=== PATIENT | male | born 1985 | race American Indian/Alaskan Native ===

== ENCOUNTER 2016-11-08 21:09 | Emergency (ER) | payer SELFPAY ==
[2016-11-08 22:33] LABS: Bilirubin,Urine NEG (Negative); Blood,Urine NEG (Negative); Ketones,Urine NEG (Negative); Leukocyte Esterase,Urine SM (Negative); Mucus,Urine 2+ /HPF; Nitrite,Urine NEG (Negative); Protein,Urine <15 mg/dL mg/dL (Negative)
[2016-11-08 22:42] LABS: Basophils % (Auto) 0.8 % (0.0-1.8); Eosinophils % (Auto) 5.8 % (0.0-4.3); Hemoglobin 15.1 gm/dl (11.8-15.2); Mean Corpuscular HGB Conc 34 % (32-34); Mean Corpuscular Hemoglobin 31 pg (28-32); Mean Corpuscular Volume 92 fl (84-94); Platelet Count 239 K/mm3 (140-440); Red Cell Distribution Width 13.7 % (13.2-15.2); White Blood Count 6.7 K/mm3 (4.5-11.0)
[2016-11-08 22:48] VITALS: BP 121/93
[2016-11-08 23:04] LABS: Alanine Aminotransferase 13 units/L (7-56); Albumin 3.9 g/dL (3.9-5); Albumin/Globulin Ratio 1.2 %; Alkaline Phosphatase 37 units/L (35-129); Anion Gap 17 mmol/L; BUN/Creatinine Ratio 5.83; Blood Urea Nitrogen 7 mg/dL (9-20); Calcium 8.6 mg/dL (8.4-10.2); Carbon Dioxide 25 mmol/L (22-30); Chloride 101.3 mmol/L (98-107); Glucose 107 mg/dL (75-100); Lipase 12 units/L (13-60); Potassium 3.8 mmol/L (3.6-5.0); Sodium 139 mmol/L (137-145); Total Protein 7.1 g/dL (6.3-8.2)
--- NOTE | 2016-11-09 00:28 | Emergency Department Report ---
ED Male HPI - General Chief complaint: Urogenital-Male Stated complaint: STD/HEADACHE/NAUSEA Source: patient, family Mode of arrival: Ambulatory Limitations: No Limitations - History of Present Illness Initial comments: 31 year old male presents to ED with groin pain and urinary frequency. patient denies penile discharge or dysuria. patient is stable, neurologically intact and in no acute distress. MD Complaint: groin pain, other (urinary frequency) -: Sudden, days(s) (2) Location: penis (groin pain above penis) Radiation: none Severity: mild Quality: sharp Consistency: intermittent Improves with: none Worsens with: urination denies other symptoms. denies: discharge, swelling, mass, rash, urinary retention, blood in urine, dysuria, fever, incontinence - Related Data Allergies Allergy/AdvReac Type Severity Reaction Status Date / Time No Known Allergies Allergy Verified 11/08/16 21:43 ED Review of Systems ROS: Stated complaint: STD/HEADACHE/NAUSEA Other details as noted in HPI Constitutional: denies: chills, fever Eyes: denies: eye pain, eye discharge, vision change ENT: denies: ear pain, throat pain Respiratory: denies: cough, shortness of breath, wheezing Cardiovascular: denies: chest pain, palpitations Endocrine: no symptoms reported Gastrointestinal: nausea. denies: abdominal pain, vomiting, diarrhea Genitourinary: urgency, frequency. denies: dysuria, hematuria, discharge, testicular pain, testicular mass Musculoskeletal: denies: back pain, joint swelling, arthralgia Skin: denies: rash, lesions Neurological: denies: headache, weakness, paresthesias Psychiatric: denies: anxiety, depression Hematological/Lymphatic: denies: easy bleeding, easy bruising ED Past Medical Hx - Past Medical History Previous Medical History?: No - Surgical History Past Surgical History?: No - Social History Smoking Status: Current Every Day Smoker Substance Use Type: Alcohol ED Physical Exam - General Limitations: No Limitations General appearance: alert, in no apparent distress - Head Head exam: Present: atraumatic, normocephalic - Eye Eye exam: Present: normal appearance - ENT ENT exam: Present: mucous membranes moist - Neck Neck exam: Present: normal inspection - Respiratory Respiratory exam: Present: normal lung sounds bilaterally. Absent: respiratory distress - Cardiovascular Cardiovascular Exam: Present: regular rate, normal rhythm. Absent: systolic murmur, diastolic murmur, rubs, gallop - GI/Abdominal GI/Abdominal exam: Present: soft, normal bowel sounds. Absent: distended, tenderness, guarding, rebound, mass - Rectal Rectal exam: Present: deferred - exam: Present: other (patient refused genital examination) - Extremities Exam Extremities exam: Present: normal inspection, full ROM - Back Exam Back exam: Present: normal inspection, full ROM - Neurological Exam Neurological exam: Present: alert, oriented X3, normal gait - Psychiatric Psychiatric exam: Present: normal affect, normal mood - Skin Skin exam: Present: warm, dry, intact, normal color. Absent: rash ED Course Vital Signs 11/08/16 21:40 Temperature 98.5 F Pulse Rate 75 Respiratory 20 Rate Blood Pressure 121/93 [Right] O2 Sat by Pulse 100 Oximetry ED Medical Decision Making - Lab Data Result diagrams: 11/08/16 22:19 11/08/16 22:19 Labs 11/08/16 11/08/16 11/08/16 21:55 22:19 22:19 WBC 6.7 RBC 4.90 Hgb 15.1 Hct 45.0 MCV 92 MCH 31 MCHC 34 RDW 13.7 Plt Count 239 Lymph % (Auto) 31.8 Leslie % (Auto) 8.2 H Eos % (Auto) 5.8 H Baso % (Auto) 0.8 Lymph # 2.1 Leslie # 0.5 Eos # 0.4 Baso # 0.1 Seg Neutrophils % 53.4 Seg Neutrophils # 3.6 Sodium 139 Potassium 3.8 Chloride 101.3 Carbon Dioxide 25 Anion Gap 17 BUN 7 L Creatinine 1.2 Estimated GFR > 60 BUN/Creatinine Ratio 5.83 Glucose 107 H Calcium 8.6 Total Bilirubin 0.30 AST 17 ALT 13 Alkaline Phosphatase 37 Total Protein 7.1 Albumin 3.9 Albumin/Globulin Ratio 1.2 Lipase 12 L Urine Color Yellow Urine Turbidity Clear Urine pH 6.0 Ur Specific [place] 1.020 Urine Protein <15 mg/dl Urine Glucose (UA) Neg Urine Ketones Neg Urine Blood Neg Urine Nitrite Neg Urine Bilirubin Neg Urine Urobilinogen 2.0 Ur Leukocyte Esterase Sm Urine WBC (Auto) 23.0 H Urine RBC (Auto) 5.0 U Epithel Cells (Auto) 2.0 Urine Mucus 2+ - Medical Decision Making 31 year old male presents to ED with urinary frequency and groin pain. patient has urine positive for UTI. 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 patient not in room when provider returned to room. patient is neurologically intact and in no acute distress. patient was observed to have normal mental status and was capable of independent decision making. patient also needs new urine sample or penile swab if he would like to be tested for STD. Critical care attestation.: If time is entered above; I have spent that time in minutes in the direct care of this critically ill patient, excluding procedure time. ED Disposition Clinical Impression: UTI (urinary tract infection) Qualifiers: Urinary tract infection type: acute cystitis Hematuria presence: without hematuria Qualified Code(s): N30.00 - Acute cystitis without hematuria Disposition: ELOPED Is pt being admited?: No Does the pt Need Aspirin: No Condition: Undetermined Instructions: Urinary Tract Infection in Men (ED) Referrals: PRIMARY CARE, [Primary Care Provider] - 3-5 Days
== END 2016-11-09 00:24 | disposition left against medical advice (07) ==
LOC: ED 21:09
DX: N30.00 Acute cystitis without hematuria (principal); F17.200 Nicotine dependence, unspecified, uncomplicated
CPT/HCPCS: 36415; 80053; 81001; 83690; 85025; 99283

== ENCOUNTER 2017-01-24 09:54 | Emergency (ER) | payer SELFPAY ==
--- NOTE | 2017-01-24 10:05 | Emergency Department Report ---
Stated Complaint: STD Time Seen by Provider: 01/24/17 10:01 - HPI History of Present Illness: PT states he has had intermittent dysuria. PT states today he noticed blood in his urine PT was seen in October and had UTI but left before work up was complete. PT states he has not followed up since that visit - ROS Review of Systems: - penile discharge - Exam Physical Exam: PT looks well, non toxic no cva tenderness kylie MSE screening note: Focused history and physical exam performed. Due to findings the following was ordered: labs ED Disposition for MSE Condition: Stable
[2017-01-24 11:42] LABS: Bilirubin,Urine NEG (Negative); Blood,Urine MOD (Negative); Ketones,Urine NEG (Negative); Leukocyte Esterase,Urine LG (Negative); Mucus,Urine 2+ /HPF; Nitrite,Urine NEG (Negative); Urobilinogen,Urine < 2.0 mg/dL (<2.0)
[2017-01-24 11:54] LABS: WBC,Urine > 182.0 /HPF (0.0-6.0)
[2017-01-24] MEDS ORDERED: ZITHROMAX PO ONE ×2 (11:54→12:17)
[2017-01-24] MEDS ORDERED: ROCEPHIN IM ONE (11:54)
[2017-01-24] MEDS ORDERED: XYLOCAINE 1% MPF 5 mL INFILTRATI ONE (11:54)
--- NOTE | 2017-01-24 11:54 | Emergency Department Report ---
ED Male HPI - General Chief complaint: Urogenital-Male Stated complaint: STD Time Seen by Provider: 01/24/17 10:01 Source: patient Mode of arrival: Ambulatory Limitations: No Limitations - History of Present Illness Initial comments: Patient is a 31 y/o male who presents due to dysuria, hematuria x 3 weeks. Patient states that he had penile discharge 3 weeks ago when symptoms initially started that has now resolved. Patient denies any fever, chills, abdominal pain , nausea, vomiting or back pain. Patient also satets that he cannot hear from the right ear. Patient denies any ear discharge, nasal congestion, sorethroat or ear injury. MD Complaint: dysuria, other (hematuria) Onset/Timin -: week(s) Location: penis Radiation: none Severity scale (0 -10): 0 Improves with: none Worsens with: urination blood in urine - Related Data Sexually active: Yes Previous Rx's Medication Instructions Recorded Last Taken Type Ciprofloxacin HCl [Ciprofloxacin 500 mg PO Q12H #14 tab 01/24/17 Unknown Rx TAB] Allergies Allergy/AdvReac Type Severity Reaction Status Date / Time No Known Allergies Allergy Verified 11/08/16 21:43 ED Review of Systems ROS: Stated complaint: STD Other details as noted in HPI Comment: All other systems reviewed and negative Constitutional: no symptoms reported. denies: chills, diaphoresis, fever, malaise, weakness ENT: ear pain, hearing loss. denies: throat pain, dental pain, epistaxis, congestion Respiratory: no symptoms reported Gastrointestinal: denies: abdominal pain, nausea, vomiting, diarrhea Genitourinary: dysuria, hematuria, discharge. denies: urgency, frequency, testicular pain, testicular mass Musculoskeletal: denies: back pain Skin: denies: rash Neurological: denies: headache ED Past Medical Hx - Past Medical History Previous Medical History?: No - Surgical History Past Surgical History?: No - Social History Smoking Status: Current Every Day Smoker Substance Use Type: Alcohol - Medications Home Medications: Home Medications Medication Instructions Recorded Confirmed Last Taken Type Ciprofloxacin HCl [Ciprofloxacin 500 mg PO Q12H #14 tab 01/24/17 Unknown Rx TAB] ED Physical Exam - General Limitations: No Limitations General appearance: alert, in no apparent distress - Head Head exam: Present: atraumatic, normocephalic, normal inspection - Eye Eye exam: Present: normal appearance - ENT ENT exam: Present: normal external ear exam - Expanded ENT Exam Expanded Ear exam: Present: normal external inspection TM/Canal exam: Cerumen Impaction: Right TM Mouth exam: Present: normal external inspection - Neck Neck exam: Present: normal inspection - Back Exam Back exam: Present: normal inspection, full ROM - Neurological Exam Neurological exam: Present: alert, oriented X3 - Psychiatric Psychiatric exam: Present: normal affect, normal mood ED Course Vital Signs 01/24/17 09:57 Temperature 98.6 F Pulse Rate 79 Respiratory 18 Rate Blood Pressure 111/52 O2 Sat by Pulse 98 Oximetry ED Medical Decision Making - Lab Data Lab Results 01/24/17 Range/Units 11:06 Urine Color Yellow (Yellow) Urine Turbidity Clear (Clear) Urine pH 5.0 (5.0-7.0) Ur Specific [place] 1.023 (1.003-1.030) Urine Protein 30 mg/dl (Negative) mg/dL Urine Glucose (UA) Neg (Negative) mg/dL Urine Ketones Neg (Negative) mg/dL Urine Blood Mod (Negative) Urine Nitrite Neg (Negative) Urine Bilirubin Neg (Negative) Urine Urobilinogen < 2.0 (<2.0) mg/dL Ur Leukocyte Esterase Lg (Negative) Urine WBC (Auto) > 182.0 H (0.0-6.0) /HPF Urine RBC (Auto) 42.0 (0.0-6.0) /HPF U Epithel Cells (Auto) 2.0 (0-13.0) /HPF Urine Mucus 2+ /HPF - Medical Decision Making Patient was in NAD, patient had no abdominal tenderness and denies any penile, scrotal pain or swelling, he denies any penile lesions. Patient had complete cerumen impaction. Patient will be given hydrogen peroxide to irrigate his ear. patient urinalysis reveled large leukocyte esterase, WBC 42 with RBCs. Patient was treated for urethritis in the ER. patient will be discharged with a prescription for ciprofloxacin. - Differential Diagnosis Urethritis, ST exposure, cerumen impaction Critical care attestation.: If time is entered above; I have spent that time in minutes in the direct care of this critically ill patient, excluding procedure time. ED Disposition Clinical Impression: Impacted cerumen of right ear, Urethritis Disposition: TO HOME OR SELFCARE Is pt being admited?: No Does the pt Need Aspirin: No Condition: Good Instructions: Nonspecific Urethritis in Men (ED), Cerumen Impaction (ED) Additional Instructions: Take ciprofloxacin 500 mg twice a day for 7 days. Return to the ER if symptoms are not resolved after taking the antibiotics. Return to the ER FOR ANY VOMITING , FEVER OR ABDOMINAL PAIN. Prescriptions: Ciprofloxacin HCl [Ciprofloxacin TAB] 500 mg PO Q12H #14 tab Referrals: PRIMARY CARE, [Primary Care Provider] - 3-5 Days Forms: STI Treatment and Prevention Time of Disposition: 12:06
[2017-01-24 12:17] VITALS: BP 111/52
[2017-01-24] MEDS ORDERED: HYDROGEN PEROXIDE TP ONE (12:18)
== END 2017-01-24 12:37 | disposition home or self-care (01) ==
LOC: ED 09:54
DX: H61.21 Impacted cerumen, right ear (principal); N34.2 Other urethritis; F17.210 Nicotine dependence, cigarettes, uncomplicated
CPT/HCPCS: 81001; 87086; 87591; 96372; 99283; J0696

== ENCOUNTER 2017-03-17 11:57 | Emergency (ER) | payer OTHER ==
[2017-03-17 12:17] VITALS: BP 107/61
--- NOTE | 2017-03-17 13:24 | Emergency Department Report ---
ED Male HPI - General Chief complaint: Urogenital-Male Stated complaint: STD,DISCHARGE Time Seen by Provider: 03/17/17 13:15 Source: patient Mode of arrival: Ambulatory Limitations: No Limitations - History of Present Illness Initial comments: PT c/o dysuria and discharge x 1 week. PT reports unprotected sex. PT states he was "being stupid" PT also states that he wiped and saw bright red blood on the tissue. PT thinks it is related to an STD. PT denies receiving anal intercourse MD Complaint: penile discharge (white ) -: Gradual, week(s) (one ) Location: penis Quality: burning Consistency: intermittent (with urination ) discharge. denies: swelling, rash, blood in urine, fever, nausea/vomiting, incontinence - Related Data Sexually active: Yes Previous Rx's Medication Instructions Recorded Last Taken Type Fluconazole [Diflucan TAB] 200 mg PO QDAY #7 tablet 03/17/17 Unknown Rx Allergies Allergy/AdvReac Type Severity Reaction Status Date / Time No Known Allergies Allergy Verified 11/08/16 21:43 ED Review of Systems ROS: Stated complaint: STD,DISCHARGE Other details as noted in HPI Comment: All other systems reviewed and negative Constitutional: denies: chills, fever Gastrointestinal: other (blood noted after wiping ). denies: nausea, vomiting, hematemesis, melena, hematochezia Genitourinary: dysuria, discharge. denies: testicular mass, other (hx of circumscion, no rash ) Neurological: denies: headache ED Past Medical Hx - Past Medical History Previous Medical History?: Yes - Surgical History Past Surgical History?: No - Social History Smoking Status: Current Some Day Smoker Substance Use Type: None - Medications Home Medications: Home Medications Medication Instructions Recorded Confirmed Last Taken Type Fluconazole [Diflucan TAB] 200 mg PO QDAY #7 tablet 03/17/17 Unknown Rx ED Physical Exam - General Limitations: No Limitations General appearance: alert, in no apparent distress - Head Head exam: Present: atraumatic, normocephalic, normal inspection - Eye Eye exam: Present: normal appearance, EOMI. Absent: conjunctival injection - ENT ENT exam: Present: normal exam, mucous membranes moist, normal external ear exam - Neck Neck exam: Present: normal inspection, tenderness, full ROM - Respiratory Respiratory exam: Present: normal lung sounds bilaterally. Absent: respiratory distress, chest wall tenderness - Cardiovascular Cardiovascular Exam: Present: regular rate, normal rhythm, normal heart sounds - GI/Abdominal GI/Abdominal exam: Present: soft, normal bowel sounds. Absent: distended, tenderness, guarding, rebound - Rectal Rectal exam: Present: other (pt refused MYLES ) - Extremities Exam Extremities exam: Present: normal inspection, full ROM - Back Exam Back exam: Present: normal inspection, full ROM - Neurological Exam Neurological exam: Present: alert, oriented X3 - Psychiatric Psychiatric exam: Present: normal affect, normal mood - Skin Skin exam: Present: warm, dry, intact, normal color ED Course Vital Signs 03/17/17 12:11 Temperature 97.7 F Pulse Rate 74 Respiratory 16 Rate Blood Pressure 107/61 O2 Sat by Pulse 97 Oximetry - Reevaluation(s) Reevaluation #1: 03/17/17 13:26 PT aware of plan of care. Reevaluation #2: 03/17/17 14:17 PT aware of UA result. PT treated empirically for GC/CT. PT advised to use a barrier method. Pt verbalizes understanding. - Pulse Oximetry Interpretation Digit-Finger Initial Pulse Oximetry Readin Actions Taken: none ED Medical Decision Making - Lab Data Labs 03/17/17 13:20 Urine Color Yellow Urine Turbidity Clear Urine pH 6.0 Ur Specific [place] 1.015 Urine Protein <15 mg/dl Urine Glucose (UA) Neg Urine Ketones Neg Urine Blood Sm Urine Nitrite Neg Urine Bilirubin Neg Urine Urobilinogen < 2.0 Ur Leukocyte Esterase Lg Urine WBC (Auto) > 182.0 H Urine RBC (Auto) 15.0 U Epithel Cells (Auto) < 1.0 Urine Mucus Few Urine Yeast (Budding) 3+ - Differential Diagnosis std, constipation, uti Critical Care Time: No Critical care attestation.: If time is entered above; I have spent that time in minutes in the direct care of this critically ill patient, excluding procedure time. ED Disposition Clinical Impression: Penile discharge, Dysuria, Risky sexual behavior Disposition: - TO HOME OR SELFCARE Is pt being admited?: No Does the pt Need Aspirin: No Condition: Stable Instructions: Sexually Transmitted Diseases (ED), Safe Sex (ED) Additional Instructions: Follow up with PCP or Health dept in 3-5 days for full panel STD testing Cultures are pending, if positive, your partners will need testing/ treatment. start the Diflucan in 3 days Return to the ED if worsening or concerns Prescriptions: Fluconazole [Diflucan TAB] 200 mg PO QDAY #7 tablet Referrals: PRIMARY CARE, [Primary Care Provider] - 3-5 Days Forms: Work/School Release Form(ED) Time of Disposition: 14:21
[2017-03-17] MEDS ORDERED: ROCEPHIN IM ONE (13:26)
[2017-03-17] MEDS ORDERED: XYLOCAINE 1% MPF 5 mL INFILTRATI ONE (13:26)
[2017-03-17] MEDS ORDERED: ZITHROMAX PO ONE (13:26)
[2017-03-17 13:41] LABS: Bilirubin,Urine NEG (Negative); Blood,Urine SM (Negative); Ketones,Urine NEG (Negative); Leukocyte Esterase,Urine LG (Negative); Mucus,Urine FEW /HPF; Nitrite,Urine NEG (Negative); Protein,Urine <15 mg/dL mg/dL (Negative); Urobilinogen,Urine < 2.0 mg/dL (<2.0)
[2017-03-17 13:48] LABS: WBC,Urine > 182.0 /HPF (0.0-6.0)
== END 2017-03-17 14:34 | disposition home or self-care (01) ==
LOC: ED 11:57
DX: R30.0 Dysuria (principal); R36.9 Urethral discharge, unspecified; F17.200 Nicotine dependence, unspecified, uncomplicated
CPT/HCPCS: 81001; 87591; 96372; 99283; J0696

== ENCOUNTER 2019-04-01 17:23 | Emergency (ER) | payer SELFPAY ==
[2019-04-01 19:55] VITALS: BP 130/69
--- NOTE | 2019-04-01 20:12 | Event Note ---
ED Screening Note Date of service: 04/01/19 Time: 20:06 ED Screening Note: 33 y o male presents to ED cc of penile d/c stating he had intercourse with sexual partner recently. He denies testicular pain or swelling or dysuria, fever, he states he wants to be treated for STD, stating he needs azithromycin or amoxicillin cus he knows what he has and its STD. This initial assessment/diagnostic orders/clinical plan/treatment(s) is/are subject to change based on patients health status, clinical progression and re- assessment by fellow clinical providers in the ED. Further treatment and workup at subsequent clinical providers discretion. Patient/guardian urged not to elope from the ED as their condition may be serious if not clinically assessed and managed. Initial orders include: 1. Follow up with [facility]/ Health department 2. I discussed with pt that this was not a medical emergency and he was given resources to [facility] 3. I also advised to follow up with health department for testing and treatment
== END 2019-04-01 19:54 | disposition home or self-care (01) ==
LOC: ED 17:23
DX: R36.9 Urethral discharge, unspecified (principal)
CPT/HCPCS: 99281

== ENCOUNTER 2021-07-19 22:11 | Emergency (ER) | payer SELFPAY ==
[2021-07-19 22:30] VITALS: BP 122/70
--- NOTE | 2021-07-20 05:18 | Event Note ---
ED Screening Note Date of service: 07/20/21 Time: 04:00 ED Screening Note: Patient is a 36-year-old -[place] male with no past medical history presents to the ED persistent left cerumen impaction for the last 2 weeks. Patient states that he was initially evaluated at another urgent care clinic in [facility] and the left ear was flushed but not much of cerumen came out. Patient states that he was given a prescription for earwax removal but did not fill the prescription and decided come to the ED to have the earwax removed instead. Patient denies fever, chills, dizziness, syncope, hearing loss, chest pain or shortness of breath, cough, headache, nasal and sinus congestion or sore throat. This initial assessment/diagnostic orders/clinical plan/treatment(s) is/are subject to change based on patients health status, clinical progression and re- assessment by fellow clinical providers in the ED. Further treatment and workup at subsequent clinical providers discretion. Patient/guardian urged not to elope from the ED as their condition may be serious if not clinically assessed and managed. Initial orders include: None. Patient was screened out to the ED synthesis not emergency.
== END 2021-07-20 02:26 | disposition left against medical advice (07) ==
LOC: ED 22:11
DX: H61.22 Impacted cerumen, left ear (principal); Z53.21 Procedure and treatment not carried out due to patient leaving prior to being seen by health care provider